=== PATIENT | female | born 1980 | race Caucasian/White ===

== ENCOUNTER 2017-01-05 09:49 | Inpatient (IN) | payer OTHER ==
[~2017-01-05 09:49] MED LIST: LACTATED RINGERS 1,000 ML ONE
[2017-01-05] MEDS ORDERED: ZOFRAN IV PRN ×2 (09:50→14:38)
[2017-01-05] MEDS ORDERED: ePHEDrine SULFATE IV PRN (09:50)
[2017-01-05] MEDS ORDERED: SUBLIMAZE IV PRN (09:50)
[2017-01-05] MEDS ORDERED: POLYCILLIN/NS 2 GM/100 ML 2 GM/100 ML BAG IV ONE (09:50)
[2017-01-05] MEDS ORDERED: XYLOCAINE 2% INFILTRATI ONE (09:50)
[2017-01-05] MEDS ORDERED: MINERAL OIL PO PRN (09:50)
[2017-01-05] MEDS ORDERED: BRETHINE SUB-Q PRN (09:50)
--- NOTE | 2017-01-05 09:56 | History and Physical Report ---
History of Present Illness Date of examination: 01/05/17 (no care, unassigned patient) Date of admission: 01/05/17 09:49 Chief complaint: Contractions, no care - 7cms History of present illness: Patient speaks limited [place], language line utilized. no family members present to assist patient. She reports 2 previous vaginal births, largest baby 7#6oz. She denies health problems She denies hx surgery She has not received any care during this . Denies drug use/ETOH or smoking Past History Past Medical History: no pertinent history Past Surgical History: no surgical history Social history: , lives with family - Obstetrical History : 3 Para: 2 Hx # Term Pregnancies: 2 Number of Pregnancies: 0 Spontaneous Abortions: 0 Induced : 0 Number of Living Children: 2 Review of Systems All systems: negative - Physical Exam Breasts: Positive: normal Cardiovascular: Regular rate Lungs: Positive: Clear to auscultation, Normal air movement Abdomen: Positive: normal appearance, soft Genitourinary (Female): Positive: normal external genitalia, normal perenium Vulva: both: normal Vagina: Positive: normal moisture Uterus: Positive: normal size, normal contour Anus/Rectum: Positive: normal perianal skin Extremities: Positive: normal Deep Tendon Reflex Grade: Normal +2 - Obstetrical FHR: auscultation normal Uterine Contraction Monitor Mode: External Cervical Dilatation: 7 Cervical Effacement Percentage: 90 station: -1 Uterine Contraction Frequency (min): 5-8 Uterine Contraction Duration: 90 Uterine Contraction Pattern: Regular Uterine Tone Measurement Phase: Contraction Uterine Contraction Intensity: Moderate Results All other labs normal. Assessment and Plan 36y/o at approx 39 weeks per patient's report arrived in labor /1, vertex, IBOW. no care. anticipate , orders in EMR. Will hold off on AROM d/t unknown GBS. - Patient Problems (1) Active labor Current Visit: Yes Status: Acute (2) No care in current in third trimester Current Visit: Yes Status: Acute
[2017-01-05] MEDS ORDERED: LACTATED RINGERS 1,000 ML IV SCH (10:00)
[2017-01-05] MEDS ORDERED: PITOCin/NS 20 UNIT/1000ML DRIP 20 UNITS/1,000 ML BAG IV SCH ×2 (10:00→14:38)
[2017-01-05 10:37] LABS: Hematocrit 25.6 % (30.3-42.9); Hemoglobin 7.5 gm/dl (10.1-14.3); Mean Corpuscular HGB Conc 29 % (30-34); Mean Corpuscular Hemoglobin 17 pg (28-32); Mean Corpuscular Volume 58 fl (79-97); Red Blood Count 4.39 M/mm3 (3.65-5.03); Red Cell Distribution Width 19.8 % (13.2-15.2); White Blood Count 7.5 K/mm3 (4.5-11.0)
[2017-01-05 11:29] LABS: HIV-1 Antigen p24 Non React (Non React); HIVR-1/2 Ab Non React (Non React)
[2017-01-05 11:32] LABS: Platelet Count 82 K/mm3 (140-440)
--- NOTE | 2017-01-05 13:02 | Procedure Note ---
OB Delivery Note - Delivery Date of Delivery: 01/05/17 ( Female) Strap Maker: EBONY CASILLAS Estimated blood loss: 300cc - Vaginal Delivery presentation: vertex Delivery position: OA (BARBRA) Intrapartum events: no care, other(please specify) (right labial varicosity) Delivery induction: none Delivery augmentation: rupture of membranes Delivery monitor: external FHT, external uterine Route of delivery: Delivery placenta: spontaneous Delivery cord: 3 umbilical vessels Episiotomy: none Delivery laceration: none Anesthesia: none Delivery comments: Female infant del over intact perineum, BARBRA, No shoulder dystocia. Dr. Glass at bedside d/t concerns over infant size being larger than previous vaginal delivery. placed skin to skin on maternal abd, 3 vessel cord clamped and cut. Cord blood collected. Placenta del intact and complete. Pit to IVF. No laceration to repair. Large varicosity noted right labia. Will continue to monitor. 's weight 7#15, Apgars 8/9, EBL 300. Mother and remain LDR stable. - A at 1 minute: 8 at 5 minutes: 9 Gender: Female (7#15)
[2017-01-05] MEDS ORDERED: POLYCILLIN/NS 1 GM/50 ML 1 GM/50 ML BAG IV SCH (13:52)
[2017-01-05] MEDS ORDERED: PERCOCET 5/325 PO PRN (14:38)
[2017-01-05] MEDS ORDERED: LANSINOH TP PRN (14:38)
[2017-01-05] MEDS ORDERED: SODIUM CHLORIDE FLUSH SYRINGE 10 ML IV NR (14:38)
[2017-01-05] MEDS ORDERED: PHENERGAN PO PRN (14:38)
[2017-01-05] MEDS ORDERED: MILK OF MAGNESIA PO PRN (14:38)
[2017-01-05] MEDS ORDERED: METHERGINE IM PRN (14:38)
[2017-01-05] MEDS ORDERED: HEMABATE IM PRN (14:38)
[2017-01-05] MEDS ORDERED: DULCOLAX PR PRN (14:38)
[2017-01-05] MEDS ORDERED: TYLENOL PO PRN (14:38)
[2017-01-05] MEDS ORDERED: DERMOPLAST TP PRN (14:38)
[2017-01-05] MEDS ORDERED: TORADOL IV PRN (14:38)
[2017-01-05] MEDS ORDERED: TUCKS PAD TP PRN (14:38)
[2017-01-05] MEDS ORDERED: BENADRYL PO PRN (14:38)
[2017-01-05] MEDS ORDERED: CYTOTEC PR PRN (14:38)
[2017-01-05] MEDS ORDERED: PHENERGAN PR PRN (14:38)
[2017-01-05] MEDS: MOTRIN PO SCH (17:32)
[2017-01-06] MEDS: MOTRIN PO SCH ×3 (00:03→21:47)
[2017-01-06 01:26] LABS: Hematocrit 21.1 % (30.3-42.9); Hemoglobin 6.3 gm/dl (10.1-14.3)
[2017-01-06] MEDS ORDERED: BOOSTRIX IM ONE (06:00)
[2017-01-06] MEDS ORDERED: NACL 0.9% 500 ML 500 ML IV ONE (06:23)
[2017-01-06] MEDS ORDERED: TYLENOL PO ONE (06:25)
--- NOTE | 2017-01-06 06:35 | Progress Note ---
Assessment and Plan - Patient Problems (1) Anemia Onset Date: Unknown Current Visit: Yes Status: Chronic Qualifiers: Anemia type: iron deficiency Iron deficiency anemia type: I Vitamin B12 deficiency anemia type: V Folate deficiency anemia type: F Bone marrow failure anemia type: B Hemolytic anemia type: H Other causes of anemia: O Qualified Code(s): D50.9 - Iron deficiency anemia, unspecified Plan to address problem: With the assistance of an RN who speaks [place] I spoke with pt @ her drop in blood count. Pt states she just feels tired. Her only c/o pain is from a varicosity on her labia. Discussed with pt blood transfusion. Pt agreed to receive. orders in EMR (2) Vaginal delivery Onset Date: ~01/05/17 Current Visit: Yes Status: Acute Plan to address problem: Pt A&O X 3 VSS BP 90/60 FF below umb Lochia small Perineum intact Labia remains swollen Large varicosity No hematoma or unusual swelling noted. H&H 6.3/21.1 drop r/t blood loss from delivery. po iron started Transfusion ordered Pt's only voiced c/o is feeling tired. Stable s/p vag del, no care. P: continue pathway Blood transfusion. consulted. Subjective - Subjective Date of service: 01/06/17 Patient reports: appetite normal, other (pt states pain is a 6; pain is from the varicosity on her labia; ice pack offered) : doing well Objective - Vital Signs Latest vital signs: Vital Signs Temp Pulse Pulse Pulse Resp BP BP 01/06/17 04:35 98.6 F 77 16 99/70 01/06/17 00:00 98.6 F 74 16 122/74 01/05/17 20:30 98.6 F 76 16 111/62 01/05/17 16:07 98.5 F 76 18 108/62 01/05/17 15:57 20 01/05/17 14:05 97.8 F 50 L 16 127/68 01/05/17 13:51 97.1 F L 18 01/05/17 13:46 54 L 127/68 01/05/17 13:39 58 L 128/72 01/05/17 13:24 71 102/60 01/05/17 13:09 61 121/72 01/05/17 12:55 61 121/71 01/05/17 12:53 65 01/05/17 10:51 74 01/05/17 10:46 57 L 01/05/17 10:41 62 01/05/17 10:36 68 01/05/17 10:31 58 L 01/05/17 10:27 97.4 F L 61 18 145/80 01/05/17 10:26 61 01/05/17 10:21 61 01/05/17 10:16 71 01/05/17 10:11 60 01/05/17 10:06 72 01/05/17 10:01 64 01/05/17 09:56 62 01/05/17 09:51 66 Pulse Ox 01/06/17 04:35 01/06/17 00:00 01/05/17 20:30 01/05/17 16:07 01/05/17 15:57 01/05/17 14:05 01/05/17 13:51 01/05/17 13:46 01/05/17 13:39 01/05/17 13:24 01/05/17 13:09 01/05/17 12:55 01/05/17 12:53 99 01/05/17 10:51 99 01/05/17 10:46 99 01/05/17 10:41 99 01/05/17 10:36 98 01/05/17 10:31 100 01/05/17 10:27 100 01/05/17 10:26 100 01/05/17 10:21 100 01/05/17 10:16 100 01/05/17 10:11 100 01/05/17 10:06 100 01/05/17 10:01 100 01/05/17 09:56 100 01/05/17 09:51 100 Intake and Output 01/05/17 01/05/17 01/06/17 14:59 22:59 06:59 Intake Total 565 1100 Output Total 450 400 Balance 115 700 Intake: IV 325 PITOCin/NS 20 UNIT/1000ML 325 DRIP 20 units In 1,000 ml @ 125 mls/hr IV DIRECT VERO Rx#:[id number] Oral 240 700 Intake, Free Water 400 Output: Urine 450 400 Void 450 400 Other: Total, Intake Amount 300 Total, Output Amount 450 400 # Voids Void 1 Weight 150 lb Estimated Blood Loss 300 Patient Weight 01/06/17 06:59 Weight 150 lb - Exam Breasts: Present: normal, Cardiovascular: Present: Regular rate Lungs: Present: Normal air movement Abdomen: Present: normal appearance, soft Vulva: right: normal (bulging varicosity; only c/o pain from pt) Uterus: Present: normal, fundal height below umbilicus Extremities: Present: normal Deep Tendon Reflex Grade: Normal +2 Incision: Present: normal, dry, intact - Labs Labs: Abnormal lab results 01/05/17 01/05/17 01/06/17 Range/Units 09:50 09:50 01:03 Hgb 7.5 L 6.3 L (10.1-14.3) gm/dl Hct 25.6 L 21.1 L (30.3-42.9) % MCV 58 L (79-97) fl MCH 17 L (28-32) pg MCHC 29 L (30-34) % RDW 19.8 H (13.2-15.2) % Plt Count 82 L (140-440) K/mm3 Crossmatch See Detail
[2017-01-06] MEDS ORDERED: BENADRYL PO NR (07:00)
[2017-01-06] MEDS ORDERED: NACL 0.9% 500 ML 500 ML ONE (09:36)
[2017-01-06] MEDS: FEOSOL PO SCH ×2 (10:00→21:46)
[2017-01-06] MEDS: COLACE PO SCH ×2 (10:00→21:46)
[2017-01-06] MEDS ORDERED: FLUARIX QUAD 2016-2017(36 MOS+) IM ONE (12:00)
[2017-01-06 20:32] LABS: Hematocrit 25.4 % (30.3-42.9)
[2017-01-07] MEDS: MOTRIN PO SCH (05:30)
--- NOTE | 2017-01-07 06:13 | Discharge Summary ---
Providers - Providers Date of Admission: 01/05/17 09:49 Date of discharge: 01/07/17 (pt agrees with d/c) Attending physician: PAULETTE DURÁN 01/05/17 14:38 Consult to Single Resource Boss [CONS] Routine Reason For Exam: assistance with , SNS Primary care physician: PAULETTE DURÁN Hospitalization Reason for admission: active labor Delivery: Episiotomy: none Laceration: none Incision: normal Other procedures: none complications: transfusion Discharge diagnosis: IUP at term delivered Hospital course: uncomplicated vaginal delivery Pt w/o complaint this AM VSS FF below umb Lochia scant Perineum intact Labia with some swelling seems to be improved. Post transfusion H&H 8.0/25.4 RX for PO iron for d/c Doing well s/p vag delivery P: d/c today Pt given our office information to schedule PP care in 4 weeks. All questions addressed. RN assisted with translation. Condition at discharge: Good Disposition: DISCHARGED TO HOME OR SELFCARE - Discharge Diagnoses (1) Anemia Status: Chronic Qualifiers: Anemia type: iron deficiency Iron deficiency anemia type: I Vitamin B12 deficiency anemia type: V Folate deficiency anemia type: F Bone marrow failure anemia type: B Hemolytic anemia type: H Other causes of anemia: O Comment: RX po iron (2) Vaginal delivery Status: Acute Comment: RTO 4 weeks PP care Plan - Discharge Medications Prescriptions: Docusate Sodium [Colace] 100 mg PO BID PRN #60 capsule PRN Reason: Constipation Ferrous Sulfate [Feosol 325 MG tab] 325 mg PO BID #60 tablet Ibuprofen [Motrin 800 MG tab] 800 mg PO TID PRN #30 tablet PRN Reason: Pain - Provider Discharge Summary Activity: routine, no sex for 6 weeks, no heavy lifting 4 weeks, no strenuous exercise Diet: routine Instructions: routine Additional instructions: [] Smoking cessation referral if applicable(refer to patient education folder for contact #) [] Refer to [facility] Booklet Call your doctor immediately for: * Fever > 100.5 * Heavy vaginal bleeding ( >1 pad per hour) * Severe persistent headache * Shortness of breath * Reddened, hot, painful area to leg or breast * Drainage or odor from incision. * Keep incision clean and dry at all times and follow doctor's instructions regarding bathing/showering - Follow up plan Follow up: PAULETTE DURÁN MD [Primary Care Provider] - 02/08/17 (Congratulations! Please call [phone] to schedule your visit in 4 weeks. Please take medications as prescribed. Call with concerns.)
[2017-01-07] MEDS: FEOSOL PO SCH (10:56)
[2017-01-07] MEDS: COLACE PO SCH (10:56)
[2017-01-07 12:06] VITALS: BP 120/67
== END 2017-01-07 15:10 | disposition home or self-care (01) | DRG 775 ==
LOC: LD 09:49 → OB 14:31
PROVIDERS: ADMIT Obstetrics & Gynecology; ATTEND Obstetrics & Gynecology
PROC: 10E0XZZ Delivery of Products of Conception, External Approach (ICD-10-PCS; principal; 2017-01-05)
PROC: 30233N1 Transfusion of Nonautologous Red Blood Cells into Peripheral Vein, Percutaneous Approach (ICD-10-PCS; 2017-01-06)
PROC: 3E0234Z Introduction of Serum, Toxoid and Vaccine into Muscle, Percutaneous Approach (ICD-10-PCS; 2017-01-06)
DX: O87.8 Other venous complications in the puerperium (principal); O09.33 Supervision of pregnancy with insufficient antenatal care, third trimester; O09.523 Supervision of elderly multigravida, third trimester; Z3A.39 39 weeks gestation of pregnancy; Z37.0 Single live birth; O90.81 Anemia of the puerperium; D50.9 Iron deficiency anemia, unspecified; Z23 Encounter for immunization
CPT/HCPCS: 36415; 85014; 85018; 85027; 86592; 86706; 86762; 86803; 86850; 86900; 86901; 86920; 87806; 90471; 90686; 90715; 99211; A6250; G0008; G0463; J0290; J2590; J3010; J7040; J7120; P9016